=== PATIENT | male | born 1970 | race Caucasian/White ===

== ENCOUNTER 2017-07-27 13:01 | Day surgery (SDC) | payer OTHER ==
[~2017-07-27 13:01] MED LIST: ASPI81CH6 CHEW; CELE100C PO; PRAV40TA2 PO; TRAM50TA PO; VITA1000 PO
[2017-07-27] MEDS ORDERED: IOHEXOL 350 MG/ML 50 ML BTL (for RAD DIAG) OTHER ONE (13:02)
[2017-07-27 13:19] VITALS: BP 156/102; PULSE 63; RESP 20; TEMP 98.3; O2SAT 99
[2017-07-27] MEDS ORDERED: IBUP1TAB7 PO (13:24)
[2017-07-27] MEDS ORDERED: TRIAMCINOLONE ACETONIDE 40 MG/ML VIAL ONE (14:21)
[2017-07-27 14:40] VITALS: BP 146/108; PULSE 80; RESP 20; TEMP 98.3; O2SAT 97
--- NOTE | 2017-07-27 16:04 | RADRPT ---
EXAM DATE/TIME: 07/27/2017 15:22 [facility] COMPARISON: No previous studies available for comparison. INDICATIONS : Patient with history of left leg and low back pain in need of nerve root injection. MEDICAL HISTORY : Herniated disc L5-S1 18 years ago SURGICAL HISTORY : None per pt ENCOUNTER: Initial ACUITY: 3 months PAIN SCORE: 0/10 FLUORO TIME: 1 minutes IMAGE SERIES: 0 CONTRAST: 1 cc Omnipaque (iohexol) 300 ACCESS LEVEL: Left S1 MEDICATIONS: 1.) 1 cc triamcinolone (Kenalog) IA 2.) 1 cc Lidocaine IA RESPONSE: Pre procedure pain level was 0/10. Post procedure pain level was 0/10. PROCEDURE : 1. Fluoroscopically guided nerve root injection. The risks, benefits and alternatives to the procedure were explained and verbal and written consent w as obtained. The site was prepped in sterile fashion. Full sterile technique was used, including ca p, mask, sterile gloves and gown and a large sterile sheet. Hand hygiene and 2% chlorhexidine and/or betadine/alcohol prep was utilized per protocol for cutaneous antisepsis. The skin and subcutaneous tissues were infiltrated with local anesthetic solution. With fluoroscopic guidance the targeted nerve root was localized and positive contrast was injected t o confirm epidural spread. Following this the prescribed medication was injected surrounding the ner ve root sleeve. The patient's preprocedure pain and post procedure pain levels were recorded. CONCLUSION: Uncomplicated fluoroscopically guided nerve root injection as above. Leandro Reyes MD on July 27, 2017 at 16:03 Board Certified Radiologist. This report was verified electronically.
== END 2017-07-27 14:56 | disposition home or self-care (01) ==
LOC: HROP 13:01 → HRIP 13:05 → HROP 14:56
PROVIDERS: ATTEND Neurological Surgery
DX: M79.662 Pain in left lower leg (principal); M54.5 Low back pain
CPT/HCPCS: 64483; J3301; Q9967

== ENCOUNTER 2017-09-16 13:00 | Day surgery (SDC) | payer OTHER ==
[~2017-09-16 13:00] MED LIST changes: +IBUP1TAB7 PO; -PRAV40TA2 PO; -TRAM50TA PO; -VITA1000 PO
[2017-09-16] MEDS ORDERED: IOHEXOL 300 MG/ML 50 ML BTL (for RAD DIAG) OTHER ONE (13:01)
[2017-09-16 13:13] VITALS: BP 158/88; PULSE 69; RESP 20; TEMP 98.5; O2SAT 99
[2017-09-16] MEDS ORDERED: PRAV40TA2 PO (13:31)
[2017-09-16] MEDS ORDERED: TRIAMCINOLONE ACETONIDE 40 MG/ML VIAL ONE (14:01)
[2017-09-16] MEDS ORDERED: BUPIVACAINE HCL PF 0.75% 30 ML VIAL ONE (14:01)
[2017-09-16 14:38] VITALS: BP 149/96; PULSE 60; RESP 20; TEMP 98; O2SAT 99
--- NOTE | 2017-09-16 16:03 | RADRPT ---
EXAM DATE/TIME: 09/16/2017 14:01 [facility] COMPARISON: NERVE ROOT INJ, LUMB, INIT LVL,LT, July 27, 2017, 15:22. INDICATIONS : Patient with a history of left leg and low back pain. MEDICAL HISTORY : HLD SURGICAL HISTORY : None. ENCOUNTER: Initial ACUITY: 2 months PAIN SCORE: 0/10 FLUORO TIME: 0.9 minutes IMAGE SERIES: 0 CONTRAST: 1 cc Omnipaque (iohexol) 300 ACCESS LEVEL: Left S1 MEDICATIONS: 1.) 2 cc bupivacaine (Marcaine) IA 2.) 60 mg triamcinolone (Kenalog) IA RESPONSE: Pre procedure pain level was 0/10. Post procedure pain level was 0/10. PROCEDURE : 1. Fluoroscopically guided nerve root injection. The risks, benefits and alternatives to the procedure were explained and verbal and written consent w as obtained. The site was prepped in sterile fashion. Full sterile technique was used, including ca p, mask, sterile gloves and gown and a large sterile sheet. Hand hygiene and 2% chlorhexidine and/or betadine/alcohol prep was utilized per protocol for cutaneous antisepsis. The skin and subcutaneous tissues were infiltrated with local anesthetic solution. With fluoroscopic guidance the targeted nerve root was localized and positive contrast was injected t o confirm epidural spread. Following this the prescribed medication was injected surrounding the ner ve root sleeve. The patient's preprocedure pain and post procedure pain levels were recorded. CONCLUSION: Uncomplicated fluoroscopically guided nerve root injection as above. Tor Caruso MD on September 16, 2017 at 16:00 Board Certified Radiologist. This report was verified electronically.
== END 2017-09-16 14:45 | disposition home or self-care (01) ==
LOC: HROP 13:00 → HRIP 13:06 → HROP 14:45
PROVIDERS: ATTEND Radiology Body Imaging
DX: M54.5 Low back pain (principal); E78.5 Hyperlipidemia, unspecified
CPT/HCPCS: 64483; J3301; Q9967